=== PATIENT | male | born 1980 | race Two or more races ===

== ENCOUNTER 2017-02-05 08:22 | Emergency (ER) | payer OTHER ==
[2017-02-05 08:25] VITALS: BP 118/69; PULSE 56; TEMP 98; BMI 28.6
[2017-02-05] MEDS ORDERED: IBUPROFEN 600 MG TABLET (FP) PO ONE ×2 (09:14→09:15)
[2017-02-05 10:14] LABS: BASOPHIL 1.1 % (0-2.0); EOSINOPHIL 2.6 % (0-4.5); MCH 32.4 pg (25.7-33.7); MCHC 34.5 g/dl (32.0-35.9); MEAN CELL VOLUME 93.9 fl (80-96); MEAN PLT VOLUME 8.7 fl (7.5-11.1); NEUTROPHILS 47.4 % (42.8-82.8); PLATELET COUNT 172 K/MM3 (134-434); RDW 12.8 % (11.9-15.9); WHITE BLOOD COUNT 4.4 K/mm3 (4.0-10.0)
--- NOTE | 2017-02-05 10:14 | PDOC ---
History of Present Illness - General Chief Complaint: Sore Throat Stated Complaint: SORE THROAT Time Seen by Provider: 02/05/17 09:01 History Source: Patient Exam Limitations: No Limitations - History of Present Illness Initial Comments: 02/05/17 10:08 Patient is a 36 year old male, no significant medical history currently on no medication present for 2 week history of lethargy, sore throat, dysphasia, and change in voice. Patient states he came to the emergency department today because yesterday he felt very tired and just "not himself". No sick contacts at home. Patient ambulatory to the ER, afebrile. Past Medical History: Denies. Allergies: No known allergies Medications: None Family History: Non-contributory Social History: Denies smoking, alcohol use, or IVDU Review of Systems GENERAL/CONSTITUTIONAL: No fever or chills. Weakness, no weight change HEAD, EYES, EARS, NOSE AND THROAT: No change in vision. No ear pain or discharge. Sore throat, hoarseness no dysphagia. CARDIOVASCULAR: No chest pain or shortness of breath. RESPIRATORY: No cough, wheezing, or hemoptysis. GASTROINTESTINAL: No nausea, vomiting, diarrhea or constipation. No rectal bleeding. GENITOURINARY: No dysuria, frequency, or change in urination. MUSCULOSKELETAL: No joint or muscle swelling or pain. No neck or back pain. SKIN AND BREASTS: No rash or easy bruising. NEUROLOGIC: No headache, vertigo, loss of consciousness, or loss of sensation. PSYCHIATRIC: No depression or anxiety. ENDOCRINE: No increased thirst. No abnormal weight change. HEMATOLOGIC/LYMPHATIC: No anemia, easy bleeding, or history of blood clots. ALLERGIC/IMMUNOLOGIC: No hives or skin allergy. No latex allergy. Physical Exam: GENERAL: The patient is awake, alert, and fully oriented, in no acute distress. EYES: Pupils equal, round and reactive to light, extraocular movements intact, sclera anicteric, conjunctiva is pale. ENT: Ears normal, nares patent, oropharynx clear without exudates. Moist mucous membranes. No uvula deviation NECK: Normal range of motion, supple without lymphadenopathy, JVD, or masses. LUNGS: Breath sounds equal, clear to auscultation bilaterally. No wheezes, and no crackles. HEART: Regular rate and rhythm, normal S1 and S2 without murmur, rub or gallop. ABDOMEN: Soft, nontender, normoactive bowel sounds. No guarding, no rebound. No masses. No bruising or abrasions MUSCULOSKELETAL: Normal range of motion, no edema. No clubbing or cyanosis. No cords, erythema, or tenderness. No CVA Tenderness with fist. NEUROLOGICAL: Cranial nerves II through XII grossly intact. Normal speech, normal gait. SKIN: Warm, Dry, normal turgor, no rashes or lesions noted. 02/05/17 13:27 Past History - Past Medical History Allergies/Adverse Reactions: Allergies Allergy/AdvReac Type Severity Reaction Status Date / Time No Known Allergies Allergy Verified 02/05/17 08:25 Home Medications: Ambulatory Orders Ibuprofen [Motrin -] 600 mg PO TID #21 tablet 02/05/17 Loratadine [Claritin] 10 mg PO DAILY #30 tablet 02/05/17 - Immunization History Immunization Up to Date: No - Psycho/Social/Smoking Cessation Hx Anxiety: No Suicidal Ideation: No Smoking Status: No Smoking History: Never smoked Number of Cigarettes Smoked Daily: 0 Hx Alcohol Use: No Drug/Substance Use Hx: No Substance Use Type: None *Physical Exam - Vital Signs Last Vital Signs Temp Pulse Resp BP Pulse Ox 98 F 56 L 18 118/69 99 02/05/17 08:22 02/05/17 08:22 02/05/17 08:22 02/05/17 08:22 02/05/17 08:22 ED Treatment Course - LABORATORY CBC & Chemistry Diagram: 02/05/17 09:06 - Medications Given in the ED: ED Medications Discontinued Medications Generic Name Dose Route Start Last Admin Trade Name Bowen PRN Reason Stop Dose Admin Ibuprofen 600 mg 02/05/17 09:14 02/05/17 09:16 Motrin - PO 02/05/17 09:15 600 mg ONCE ONE Administration Medical Decision Making - Medical Decision Making 02/05/17 10:12 A/P: Patient here for evaluation of weakness, sore throat for 2 weeks generalized malaise. Patient states that he never feels this way and it is concerning him now. He took Advil yesterday with good result. It was temporary relief. Rapid strep sent. CBC, white count and for anemia. Patient's conjunctiva are pale. 02/05/17 10:50 Laboratory Results - last 24 hr 02/05/17 09:06 WBC 4.4 RBC 4.86 Hgb 15.7 Hct 45.6 MCV 93.9 MCH 32.4 MCHC 34.5 RDW 12.8 Plt Count 172 MPV 8.7 Neutrophils % 47.4 Lymphocytes % 41.5 H Monocytes % 7.4 Eosinophils % 2.6 Basophils % 1.1 Rapid strep negative. CBC was reviewed and unremarkable. We'll DC patient home , Claritin and Motrin as needed for pain. Patient with postviral fatigue versus environmental allergens. Follow up at clinic in 2 days if symptoms persist I discussed the physical exam findings, ancillary test results and final diagnoses with the patient. I answered all of the patient's questions. The patient was satisfied with the care received and felt comfortable with the discharge plan and treatment plan. The patient will call to arrange follow-up and will return to the Emergency Department with any new, persistent or worsening symptoms. *DC/Admit/Observation/Transfer Diagnosis at time of Disposition: Environmental allergies Fatigue Qualifiers: Fatigue type: postviral fatigue syndrome Qualified Code(s): G93.3 - Postviral fatigue syndrome - Discharge Dispostion Disposition: HOME Condition at time of disposition: Good Admit: No - Prescriptions Prescriptions: Loratadine [Claritin] 10 mg PO DAILY #30 tablet Ibuprofen [Motrin -] 600 mg PO TID #21 tablet - Referrals Referrals: [facility] [Provider Group] - Patient Instructions Additional Instructions: Increase fluids to prevent dehydration Please attempt to take Claritin daily, Motrin as needed for pain Motrin for fever greater than 101.0 Please followup with primary care in 3 days if symptoms persist Return to emergency department any increased cough, fever, inability to drink or other concerns - Post Discharge Activity Work/School Note: Back to Work
== END 2017-02-05 11:03 | disposition home or self-care (01) ==
LOC: JERFT 08:22
DX: J30.89 Other allergic rhinitis (principal); G93.3 Postviral and related fatigue syndromes
CPT/HCPCS: 36415; 85025; 87070; 87430; 99281-25

== ENCOUNTER 2021-02-20 10:18 | Emergency (ER) | payer OTHER ==
[2021-02-20 10:23] VITALS: BP 116/71; PULSE 60; TEMP 98.6; BMI 25.0
== END 2021-02-20 10:57 | disposition home or self-care (01) ==
LOC: JERFT 10:18
DX: B35.6 Tinea cruris (principal); R10.13 Epigastric pain
CPT/HCPCS: 99281-25

== ENCOUNTER 2021-04-27 14:36 | Emergency (ER) | payer OTHER ==
[2021-04-27 14:50] VITALS: BP 111/67; PULSE 74; TEMP 97.7; BMI 27.4
== END 2021-04-27 17:49 | disposition home or self-care (01) ==
LOC: JERFT 14:36
DX: B35.6 Tinea cruris (principal)
CPT/HCPCS: 99283-25

== ENCOUNTER 2023-06-20 08:40 | Emergency (ER) | payer OTHER ==
[2023-06-20 08:50] VITALS: BP 127/62; PULSE 61; RESP 17; TEMP 98.3; BMI 30.7
== END 2023-06-20 10:21 | disposition home or self-care (01) ==
LOC: JERFT 08:40
DX: R05.9 Cough, unspecified (principal); J20.8 Acute bronchitis due to other specified organisms; R09.81 Nasal congestion; R09.89 Other specified symptoms and signs involving the circulatory and respiratory systems; Z20.822 Contact with and (suspected) exposure to COVID-19
CPT/HCPCS: 0241U-QW; 71046-TC-FY; 99284-25